=== PATIENT | female | born 1955 | race African-American/Black ===

== ENCOUNTER 2017-09-14 11:25 | Emergency (ER) | payer OTHER, SELFPAY ==
[2017-09-14 12:02] LABS: #Basophils 0.1 thou/uL (0.0-0.2); #Eosinphils 0.1 thou/uL (0.0-0.7); #Lymphocytes 1.3 thou/uL (1.20-3.40); #Monocytes 0.8 thou/uL (0.11-0.59); #Neutrophils 5.9 thou/uL (1.40-6.50); %Basophils 1.3 % (0.0-1.0); %Eosinophils 1.4 % (0.0-10.0); %Lymphocytes 16.1 % (21.0-51.0); Mean Platelet Volume 6.8 fL (7.4-10.4); Red Blood Cell (RBC) Count 3.04 mill/uL (4.20-5.40); White Blood Cell (WBC) Count 8.3 thou/uL (4.8-10.8)
[2017-09-14 12:26] LABS: ALT (SGPT) Less than 7 U/L (8-55); AST (SGOT) 12 U/L (5-34); Alkaline Phosphatase 94 U/L (40-150); Anion Gap 13 mmol/L (10-20); BUN (Urea Nitrogen) 29 mg/dL (9.8-20.1); Bilirubin, Total 0.4 mg/dL (0.2-1.2); CK (CPK) 48 U/L (29-168); Calc. Creatinine Clearance 0 mL/min (70-130); Carbon Dioxide 27 mmol/L (23-31); Chloride 100 mmol/L (98-107); Estimated GFR-MDRD 40; Globulin 3.5 g/dL (2.4-3.5); Protein, Total 7.1 g/dL (6.0-8.3)
[2017-09-14 12:29] LABS: Troponin I 0.019 ng/mL (< 0.028)
--- NOTE | 2017-09-14 13:12 | RAD ---
CHEST ONE VIEW: History: 62-year-old female with shortness of breath and abdominal swelling. FINDINGS: Monitor leads overlie the chest. Heart size is upper range of normal. No confluent pneumonia, overt e gavin, or pleural effusion. No free intraperitoneal air. IMPRESSION: No significant acute intrathoracic disease. Prominent bilateral nipple shadows. POS: [facility]
--- NOTE | 2017-09-14 13:37 | RAD ---
ABDOMEN TWO VIEWS: History: 62-year-old female with abdominal distention, swelling, shortness of breath. FINDINGS: There is some gas and fecal material particularly in the transverse colon and left colon. There is so me minimal gas in nondilated small bowel. The bowel loops appear to be somewhat centralized, certainl y raising concern for ascites. No overt bowel obstruction or calculus. IMPRESSION: Evidence for ascites. No overt obstruction or free air or calculus. POS: [facility]
[2017-09-14] MEDS ORDERED: Iopamidol 370 76% 50 ML VIAL FS ONE (14:03)
[2017-09-14] MEDS ORDERED: ISOVUE-370 76%-LOCM 1 ML ONE (14:03)
--- NOTE | 2017-09-14 16:04 | CT ---
CT ABDOMEN WITH CONTRAST CT PELVIS WITH CONTRAST: DATE: 09/14/17 HISTORY: 62-year-old female with abdominal distention for approximately 1 week, mild constipation, nausea, and intermittent generalized abdominal pain. COMPARISON: None. TECHNIQUE: IV injection of iodinated contrast media: Administered. Oral contrast media: Administered. FINDINGS: There is no infiltrate or pleural effusion at the bilateral lung bases. There is a moderate volume of free fluid throughout the upper abdominal cavity, and large volume of free fluid in the pelvis, carmencita cially at the pelvic inlet. Multilobular, complexly shaped, heterogeneously enhancing masses are pres ent within the pelvic cavity. Some of these masses are partially calcified, and probably represent ut erine fibroids. Others are separate from the main mass, and could represent intraperitoneal tumor see ding. There is no splenomegaly. There is a large number of moderately hypodense multifocal masses throughou t the spleen. There are similar appearing hypodense multiple masses with mild peripheral enhancement in the left lobe, right lobe, and caudate lobe, of the liver. Some of them are in the region of the f alciform ligament. These lesions are mostly peripheral. There is a moderate to large volume of coloni c stool, except in the collapsed sigmoid colon and descending colon. There is oral contrast material throughout small bowel loops, mostly of normal caliber. The oral contrast material reaches the distal ileum, approximately 10-20 cm proximal to the ileocecal valve. The distal approximately 10-15 cm of the ileum is distended with stool, and is mildly dilated to approximately 3 cm caliber (fecalization of small bowel). No transition point is visualized. There is gas within a normal appendix. Heavy athe rosclerotic calcification of abdominal aorta, bilateral common iliac arteries, internal iliac arterie s, common femoral arteries, and superior mesenteric artery. No obvious pancreatic mass. No hydronephr osis bilaterally. No evidence of adrenal mass. At the bifurcation of the main portal vein into the left and right portal veins, there is severe sten osis. There is portal vein thrombosis yet. IMPRESSION: 1. 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 2. The primary source could be ovarian carcinoma, with probable multiple masses and peritoneal seedi ng within the pelvic cavity. 3. Severe focal stenosis, presumably caused by the surrounding mass at the leobardo hepatis, at the bif urcation of the portal vein. THOMAS POS: [facility]
--- NOTE | 2017-09-15 02:39 | CON ---
DATE OF SERVICE: 09/14/2017 TIME OF SERVICE: 04:45 p.m. CHIEF COMPLAINT: Abdominal distention. HISTORY OF PRESENT ILLNESS: This is a 62-year-old nulligravid female who presented to the Emergency Department for abdominal distention. She reports that for the last 2 weeks or so she has noticed an increase in abdominal distention as well as decreased appetite and constipation. She has had some diffuse, constant discomfort, but none today. She denies any problems with urination, vaginal bleeding, significant pain, or other concerns. She is a somewhat poor historian. PAST MEDICAL HISTORY: 1. Hypertension. 2. Congestive heart failure. PAST SURGICAL HISTORY: Denies. PSYCH HISTORY: Denies. ALLERGIES: MEMO INHIBITORS. MEDICATIONS: 1. Carvedilol. 2. Clonidine. 3. Spironolactone. 4. Aspirin. 5. Hydralazine. 6. Furosemide. 7. Losartan. 8. Ranitidine. SOCIAL HISTORY: Positive for tobacco use of approximately a pack per day or less. She reports that she has quit drinking beer for "a while now." She denies any drug use. She is not . She does not drive and seems to rely on her 2 sisters and niece quite a bit. FAMILY HISTORY: Negative for breast, ovary, uterine, or colon cancers. REVIEW OF SYSTEMS: Negative for head, eyes, ears, nose, throat, cardiovascular , respiratory, GI, , neuro, psych, musculoskeletal, skin or constitutional symptoms other than mentioned above. PHYSICAL EXAMINATION: VITAL SIGNS: Afebrile with normal vital signs. GENERAL: Awake, alert, in no acute distress. CHEST: Nonlabored breathing. ABDOMEN: Diffusely tender to palpation with moderate distention, no rebound, or guarding. Abdomen was soft and no masses could be palpated, but exam was limited due to discomfort. PELVIC: Deferred. IMAGING: CT scan of the abdomen and pelvis showed evidence for pseudomyxoma peritonei with moderate volume of ascites, multiple masses throughout the spleen and liver as well as pelvic masses with suspected peritoneal seeding. There is also a focal stenosis at the leobardo hepatis at the bifurcation of the portal vein. LABORATORY DATA: WBC 8.3, hemoglobin 9.0, hematocrit 28.0, platelets 430,000. Creatinine 1.58. Liver functions normal. 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 The patient is stable at this time and can be discharged home, but will need to follow up with a [facility] Oncologist. I spent approximately 30 minutes discussing the diagnosis and coordinating care with the patient. She will be set up with Dr. Kristine Oneal in [place], who was able to see her tomorrow or . The patient is working with her niece to try and get a ride. She was given Dr. Oneal's address and phone number with her discharge instructions. I have faxed the CT scan results to Dr. Oneal's office and with that document included the patient's phone number, which is [phone]. The patient was instructed to call Dr. Oneal's office as soon as she figures out which day she is able to come and she agreed. I did speak with the patient's niece and sister at the request of Navid to explain the diagnosis and the need for transportation to be seen in [place]. All questions were answered. Thank you very much for this consultation. Please let me know if I can be of any further assistance. CLAUDINE
--- NOTE | 2017-10-09 10:42 | EKG ---
Test Reason : Blood Pressure : / mmHG Vent. Rate : 074 BPM Atrial Rate : 074 BPM P-R Int : 162 ms QRS Dur : 100 ms QT Int : 456 ms P-R-T Axes : 043 -35 076 degrees QTc Int : 506 ms Normal sinus rhythm Possible Left atrial enlargement Left axis deviation Left ventricular hypertrophy with repolarization abnormality Cannot rule out Septal infarct , age undetermined Abnormal ECG Confirmed by GRIFFIN Kay, EDY ([id number]), clinical editor AN MAGDALENO ([id number]) on 10/09/2017 10:42:07 AM Referred By: Confirmed By:EDY MOYA M.D.
== END 2017-09-14 17:45 | disposition home or self-care (01) ==
LOC: ERS 11:25
DX: N83.209 Unspecified ovarian cyst, unspecified side (principal); R18.8 Other ascites; I11.0 Hypertensive heart disease with heart failure; I50.9 Heart failure, unspecified; F17.210 Nicotine dependence, cigarettes, uncomplicated; Z79.82 Long term (current) use of aspirin; Z79.899 Other long term (current) drug therapy
CPT/HCPCS: 36415; 71010; 74020; 74177; 80053; 82553; 83880; 84484; 85025; 93005